=== PATIENT | male | born 1990 | race African-American/Black ===

== ENCOUNTER 2019-07-06 15:30 | Emergency (ER) | payer OTHER, SELFPAY ==
[2019-07-06 15:41] VITALS: BP 143/104; PULSE 84; RESP 13; TEMP 36.7; O2SAT 98
[2019-07-06 15:53] LABS: Glucose Point of Care 342 (65-105)
--- NOTE | 2019-07-06 16:12 | ED.RECABL ---
HPI - Recheck/Abnormal Lab/Rx General Chief Complaint: Recheck/Abnormal Lab/Rx Stated Complaint: DM, ELEVATED BLOOD SUGAR Time Seen by Provider: 07/06/19 16:00 Source: patient Mode of arrival: ambulatory Limitations: no limitations History of Present Illness HPI narrative: A 29 y/o male pt with a PMHx of DM, presents to the ED, with c/o high blood glucose x 2 weeks. Pt notes feeling fatigued, dehydrated, nauseated, and having frequent urination. Pt states he had an appointment with his PCP today and his blood glucose was 500 and his PCP sent him to the ED to be evaluated. He notes taking his insulin today. He denies SOB, CP, fever or chills. Pt states he was seen at [facility] x 2 weeks ago and his blood glucose was 700. He notes that he was diagnosed with DM x 3 years ago. Pt has hx of smoking and is an occasional drinker. complaint: abnormal lab (blood glucose 500) Initial visit (ago): hour(s) Description of abnormal result: blood glucose 500 Context: other (sent from PCP) Associated symptoms: nausea and other (dehydration, fatigue, frequent urination) Related Data Home Medications Medication Instructions Recorded Confirmed glimepiride mg 04/23/19 insulin glargine [Basaglar KwikPen unit SUBCUT 04/23/19 U-100 Insulin] metformin mg 04/23/19 Allergies Allergy/AdvReac Type Severity Reaction Status Date / Time No Known Allergies Allergy Verified 07/06/19 15:49 Review of Systems Review of Systems: All systems reviewed & are unremarkable except as noted in HPI and below Constitutional: Constitutional: Denies chills, Reports fatigue and Denies fever(s) Cardiovascular: Cardiovascular: Denies chest pain and Denies dyspnea Gastrointestinal: Gastrointestinal: Reports nausea and Reports other (dehydration) Genitourinary: Genitourinary: Reports urinary frequency [facility] Past Medical History Medical History (Updated 07/06/19 @ 18:09 by Noah Keyes MD) Diabetes mellitus Surgical History Surgical History (Updated 07/06/19 @ 16:51 by BERNADETTE Dougherty) Surgical history unknown Social History Social History (Updated 07/06/19 @ 16:52 by BERNADETTE Dougherty) Smoking status: Smoker, status unknown Alcohol intake: current Alcohol use details: occasional Gender identity (if verbalized by the patient): Male Exam Narrative: Exam Narrative: General appearance: Well-developed, well-nourished Skin: Normal color Head: Normocephalic, nontraumatic Eyes: Clear conjunctiva ENT: Oropharynx normal, ears normal, nose normal Neck: Supple, nontender Chest and respiratory: Airway patent, no respiratory distress, no accessory muscle use Heart: Regular rate/rhythm Abdomen: Soft, nontender, no organomegaly, quiet bowel sounds Vascular: Normal peripheral pulses, normal capillary refill. Musculoskeletal: Normal range of motion, nontender back Neurologic: Alert and oriented ?3, GRAIN RECEIVER is normal as tested, no gross motor deficit Course Course Emergency Course: Improving Vital Signs Vital signs: Vital Signs Temperature 36.7 C 07/06/19 15:41 Pulse Rate 84 07/06/19 15:41 Respiratory Rate 13 07/06/19 15:41 Blood Pressure 143/104 H 07/06/19 15:41 Pulse Oximetry 98 07/06/19 15:41 Temperature 36.7 C 07/06/19 15:41 Pulse Rate 84 07/06/19 15:41 Respiratory Rate 13 07/06/19 15:41 Blood Pressure 143/104 H 07/06/19 15:41 Pulse Oximetry 98 07/06/19 15:41 MDM - Recheck/Abnormal Lab/Rx MDM Narrative Medical decision making narrative: My concern is the differential diagnosis below. Labs, IV fluid, IV insulin, UA, ABG ordered. Further plan to follow Differential Diagnosis Differential diag
[2019-07-06 16:35] LABS: Basophils Percent Auto 0.5 % (0.2-1.2); Eosinophils Absolute Auto 0.1 K/mm3 (0-0.3); Eosinophils Percent Auto 1.4 % (0-4.4); Hemoglobin 17.3 g/dL (14.0-18.0); Immature Granulocyte Absolute 0.03 K/mm3 (0.00-0.031); Immature Granulocyte Percent A 0.5 % (0-0.5); Lymphocytes Absolute Auto 3.69 K/mm3 (0.9-3.2); Lymphocytes Percent Auto 65.4 % (18.3-44.2); Mean Corpuscular HGB Conc 33.9 g/dl (32-36); Mean Corpuscular Hemoglobin 29.6 pg (26-34); Mean Corpuscular Volume 87.3 fl (80-100); Mean Platelet Volume 10.9 fl (7.4-10.4); Monocytes Absolute Auto 0.7 K/mm3 (0.1-0.6); Monocytes Percent Auto 11.9 % (2.6-8.5); Neutrophils Absolute Auto 1.1 K/mm3 (1.3-6.7); Neutrophils Percent Auto 20.3 % (45.5-73.1); Platelet Count Result 230 k/mm3 (150-375); Red Blood Count 5.84 M/mm3 (4.6-6.20); Red Cell Distribution Width 13.5 % (11.5-14.5); White Blood Count 5.6 K/mm3 (4.5-10.0)
[2019-07-06] MEDS: INSULIN HUMAN REGULAR (*BKC) 100 UNITS/ML 10 UNITS IV PUSH (16:41)
[2019-07-06] MEDS: SODIUM CHLORIDE 0.9% IV 1,000 ML 999 ML IV CONT (16:42)
[2019-07-06 16:49] LABS: Alanine Aminotransferase 24 U/L (4-50); Albumin Level 4.1 g/dL (3.5-5.1); Alkaline Phosphatase 60 U/L (38-126); Aspartate Amino Transferase 22 U/L (17-59); Bilirubin,Total 0.6 mg/dL (0.2-1.3); Blood Urea Nitrogen 7 mg/dL (9-20); Calcium 8.7 mg/dL (8.4-10.2); Carbon Dioxide 27 mmol/L (22-30); Chloride 102 mmol/L (98-107); Estimated CRCL calculation 153 ml/min; Estimated Glomerular Filt Rate > 60; Glucose 328 mg/dL (75-110); Phosphorus 2.4 mg/dL (2.5-4.5); Potassium 3.6 mmol/L (3.4-5.0); Sodium 136 mmol/L (137-145)
[2019-07-06 16:49] LABS: Glucose Point of Care 267 (65-105)
[2019-07-06 17:08] LABS: Add Urine Microscopic? YES; Appearance Urine Clear (Clear); Bilirubin Urine Negative (Negative); Blood Urine Negative (Negative); Color Urine Straw (Yellow); Glucose Urine UA 3+ mg/dL (Negative); Ketones Urine 1+ mg/dL (Negative); Leukocyte Esterase Ur Negative LEU/UL (Negative); Nitrate Urine Negative (Negative); Protein Urine Negative (Negative); RBC Urine 0-2 /hpf (0-2); Urobilinogen Urine Negative mg/dL (<2.0); WBC Urine 0-3 /hpf
[2019-07-06 17:09] LABS: Specific Grav Ur 1.036 (1.001-1.035)
[2019-07-06 17:33] LABS: Beta-Hydroxybutyrate/Acetoacetate 0.66 mmol/L (0.02-0.27)
[2019-07-06 18:19] LABS: Glucose Point of Care 76 (65-105)
[2019-07-06 18:27] LABS: Alveolar/Arterial O2 Gradient 63.7 mmHg; Base Excess ABG 1.1 mEq/l (+/-2.0); Carboxyhemoglobin 1.6 % THb (0-2.0); Fractional Inspired Oxygen 21 %; HCO3 ABG 27.3 mEq/l (22.0-26.0); Methemoglobin ABG 0.4 %THb (0-1.5); Oxygen Content ABG 14.6 %vol (16.0-22.0); Oxyhemoglobin 57.5 % THb (90.0-100.0); PCO2 ABG 48.5 mmHg (35.0-45.0); PO2 FiO2 Ratio Arterial Blood 1.33 %; Reduced Hemoglobin 40.5 %THb (0-5.0); Total Hemoglobin 18.2 g/dL (12.0-18.0); pH ABG 7.369 (7.350-7.450)
[2019-07-06 18:29] LABS: Device ROOM AIR; Modified Allen's Test Pass; Oxygen Saturation ABG 50.1 % (95.0-100.0); Site Drawn RIGHT RADIAL
== END 2019-07-06 18:54 | disposition home or self-care (01) ==
PROVIDERS: Emergency Provider Emergency Medicine
DX: E11.65 Type 2 diabetes mellitus with hyperglycemia (principal); Z79.84 Long term (current) use of oral hypoglycemic drugs; Z79.4 Long term (current) use of insulin
CPT/HCPCS: 36415; 36600; 80053; 81001; 82010; 82375; 82805; 82948; 83050; 83735; 84100; 85025; 96361; 96374; 99284; J1815; J7030

== ENCOUNTER 2021-07-08 17:24 | Emergency (ER) | payer OTHER, SELFPAY ==
--- NOTE | ~2021-07-08 | XR_ITS ---
XR chest 1V portable DATE: 07/08/2021 19:53 INDICATION: Shortness of breath,, congestion, fatigue. Covid-positive 2 weeks ago TECHNIQUE: Portable upright AP chest on 07/08/2021 at 1950 hours COMPARISON: None FINDINGS: Normal heart size. No hilar or mediastinal enlargement. Minimal atelectasis or infiltrate i n the lower lung zones. No pulmonary infiltrate or consolidation, pleural effusion or pulmonary vascu lar congestion or pneumothorax is noted otherwise. IMPRESSION: Minimal infiltrate or atelectasis in the lower lung zones Reviewed, dictated and finalized at location A.
[2021-07-08 17:26] VITALS: BP 155/93; PULSE 63; RESP 18; TEMP 36.3; O2SAT 99
--- NOTE | 2021-07-08 17:42 | ED.ABDPAIN ---
HPI - Abdominal Pain General Chief Complaint: Abdominal Pain <Alanna Arvizu PA-C - Last Filed: 07/09/21 05:08> Stated Complaint: abd, fatigue, SOB- covid 2 weeks ago <NEELAM Durand Last Filed: 07/09/21 05:08> Time Seen by Provider: 07/08/21 17:39 <NEELAM Durand Last Filed: 07/09/21 05:08> Source: patient <NEELAM Durand Last Filed: 07/09/21 05:08> Mode of arrival: ambulatory <NEELAM Durand Last Filed: 07/09/21 05:08> Limitations: no limitations <NEELAM Durand Last Filed: 07/09/21 05:08> History of Present Illness HPI narrative: Patient is a 31-year-old male who presents the ED with report of nausea, vomiting, fatigue. Patient reports he has been feeling fatigued and mildly short of breath for the past 1 month. He was diagnosed with COVID-19 2 weeks ago. He reports he experienced sneezing, cough, congestion, and shortness of breath during that time. His upper respiratory symptoms have improved slightly, but he still reports having persistent fatigue and shortness of breath. He states sometimes even bending over to tie his shoes will cause him to become slightly short of breath. He is still able to perform his daily functions. No calf pain or BLE swelling. No CP. He has not taken any medications for symptoms. Yesterday, patient began having diffuse upper abdominal pain with nausea and vomiting. The nausea has persisted into today, which prompted him to return to the ED. Patient denies any fevers, chills, hematemesis, diarrhea, constipation, rectal bleeding, urinary symptoms. <NEELAM Durand Last Filed: 07/09/21 05:08> Related Data Home Medications: Home Medications Medication Instructions Recorded Confirmed glimepiride mg 04/23/19 insulin glargine [Basaglar KwikPen unit SUBCUT 04/23/19 U-100 Insulin] metformin mg 04/23/19 <NEELAM Durand Last Filed: 07/09/21 05:08> Allergies/Adverse Reactions: Allergies Allergy/AdvReac Type Severity Reaction Status Date / Time No Known Allergies Allergy Verified 07/06/19 15:49 <Alanna Arvizu PA-C - Last Filed: 07/09/21 05:08> Review of Systems Review of Systems: CONSTITUTIONAL: Reports fatigue. Denies fever, chills. ENT: Denies otalgia. CARDIOVASCULAR: Denies chest pain, palpitations, edema. RESPIRATORY: Reports cough and dyspnea. GASTROINTESTINAL: Reports diffuse upper abdominal pain, nausea, vomiting. Denies constipation, rectal bleeding, hematemesis, or diarrhea. GENITOURINARY: Denies dysuria or hematuria. MUSCULOSKELETAL: Denies back pain, BLE pain. NEUROLOGIC: Denies headache, numbness, or weakness. <Alanna Arvizu PA-C - Last Filed: 07/09/21 05:08> All systems reviewed & are unremarkable except as noted in HPI and below <Alanna Arvizu PA-C - Last Filed: 07/09/21 05:08> PMFSH Past Medical History Medical History: Medical History COVID-19 virus infection Diabetes mellitus <Alanna Arvizu PA-C - Last Filed: 07/09/21 05:08> Surgical History Surgical History: Surgical History No pertinent past surgical history Surgical history unknown <Alanna Arvizu PA-C - Last Filed: 07/09/21 05:08> Social History Social History: Social History Smoking status: Smoker, status unknown Alcohol intake: current Alcohol use details: occasional Gender identity (if verbalized by the patient): Male <Alanna Arvizu PA-C - Last Filed: 07/09/21 05:08> Exam Narrative: GENERAL: Well appearing, well-nourished, non-toxic, in no acute distress. HEAD: Normocephalic, atraumatic. EYES: EOMI, conjunctivae clear bilaterally. NOSE: Normal, no drainage THROAT: Pharynx clear, no exudate. MMs moist. NECK: Supple. No adenopathy, no masses. RESPIRATORY: Airway patent, respirations non
[2021-07-08 18:33] LABS: Basophils Percent Auto 0.5 % (0.2-1.2); Eosinophils Absolute Auto 0.2 K/mm3 (0-0.3); Eosinophils Percent Auto 2.8 % (0-4.4); Hematocrit 52.7 % (42.0-52.0); Hemoglobin 17.8 g/dL (14.0-18.0); Immature Granulocyte Absolute 0.02 K/mm3 (0.00-0.031); Immature Granulocyte Percent A 0.3 % (0-0.5); Lymphocytes Absolute Auto 2.83 K/mm3 (0.9-3.2); Lymphocytes Percent Auto 47.3 % (18.3-44.2); Mean Corpuscular HGB Conc 33.8 g/dl (32-36); Mean Corpuscular Hemoglobin 31.4 pg (26-34); Mean Corpuscular Volume 92.9 fl (80-100); Mean Platelet Volume 9.5 fl (7.4-10.4); Monocytes Absolute Auto 0.9 K/mm3 (0.1-0.6); Monocytes Percent Auto 14.4 % (2.6-8.5); Neutrophils Absolute Auto 2.1 K/mm3 (1.3-6.7); Neutrophils Percent Auto 34.7 % (45.5-73.1); Platelet Count Result 226 k/mm3 (150-375); Red Blood Count 5.67 M/mm3 (4.6-6.20)
[2021-07-08 18:45] LABS: Alanine Aminotransferase 28 U/L (4-50); Albumin Level 4.3 g/dL (3.5-5.1); Alkaline Phosphatase 48 U/L (38-126); Anion Gap 5 mmol/L (8-16); Aspartate Amino Transferase 30 U/L (17-59); Bilirubin,Total 0.3 mg/dL (0.2-1.3); Blood Urea Nitrogen 10 mg/dL (9-20); Calcium 8.6 mg/dL (8.4-10.2); Carbon Dioxide 30 mmol/L (22-30); Chloride 105 mmol/L (98-107); Estimated CRCL calculation 119 ml/min; Estimated Glomerular Filt Rate > 60; Glucose 134 mg/dL (65-110); Lipase 60 U/L (23-300); Sodium 140 mmol/L (137-145)
[2021-07-08 18:50] LABS: Add Urine Microscopic? YES; Appearance Urine Clear (Clear); Bacteria Urine Trace /hpf; Bilirubin Urine Negative (Negative); Blood Urine Negative (Negative); Color Urine Yellow (Yellow); Glucose Urine UA Negative (Negative); Ketones Urine Negative (Negative); Leukocyte Esterase Ur Negative LEU/UL (Negative); Mucus Urine Rare /lpf; Nitrate Urine Negative (Negative); Protein Urine Negative (Negative); RBC Urine 0-2 /hpf (0-2); Specific Grav Ur 1.025 (1.001-1.035); Squamous Epithelial Cell Urine Rare /hpf (Few); WBC Urine 0-3 /hpf
[2021-07-08 18:51] LABS: D Dimer 0.27 ug/mL (<0.48)
[2021-07-08] MEDS: ONDANSETRON HCL ODT 4 MG TABLET PO (19:20)
--- NOTE | 2021-07-08 20:00 | PC.NURSE ---
Dry Transfer Man provided patient with a glass of ice water.
== END 2021-07-08 20:39 | disposition home or self-care (01) ==
PROVIDERS: Physician Assistant; Emergency Provider Emergency Medicine
DX: R11.2 Nausea with vomiting, unspecified (principal); R05.9 Cough, unspecified; Z86.16 Personal history of COVID-19; E11.9 Type 2 diabetes mellitus without complications; Z79.4 Long term (current) use of insulin; Z79.84 Long term (current) use of oral hypoglycemic drugs
CPT/HCPCS: 36415; 71045; 80053; 81001; 83690; 85025; 85380; 99283; A9270